=== PATIENT | male | born 1970 | race Asian ===

== ENCOUNTER 2025-09-06 20:49 | Emergency (ER) | payer OTHER ==
[~2025-09-06] VITALS: Ht 170.2 cm; Wt 80.3 kg
[2025-09-06 20:51] VITALS: O2SAT 97
[2025-09-06 20:56] VITALS: BP 143/90; PULSE 74; RESP 18; TEMP 36.7; O2SAT 96
== END 2025-09-06 22:20 | disposition left against medical advice (07) ==
LOC: ER 20:49
DX: R19.7 Diarrhea, unspecified (principal); R10.9 Unspecified abdominal pain
CPT/HCPCS: 99282